=== PATIENT | female | born 1950 | race Caucasian/White ===

== ENCOUNTER → 2018-04-28 | Outpatient (CLI) | payer OTHER ==
[~2018-04-28] MED LIST: ASPIRIN81 M2 PO; BIOTIN5 M1 PO; CALCIUM + D3 E1 EACH PO; CYANOCOBAL1000 MCG/2 IM; HYDROCHLOROTHIA25 MG PO; PRAVACHOL20 MG PO; PRINIVIL5 MG PO; VITAMIN D-32000 UNI2 PO
[2018-04-28 08:55] LABS: BASOPHIL (%) 0.3 % (0-1); EOSINOPHIL (%) 0.5 % (0-5); HEMOGLOBIN 9.4 G/DL (11.9-15.5); IMMATURE GRANULOCYTE (%) 0.5 % (0.0-0.7); LYMPHOCYTE (%) 34.3 % (15-42); LYMPHOCYTE COUNT 1.3 K/uL (1.0-2.8); MCH 30.2 PG (29.0-34.0); MCHC 32.4 G/DL (30.0-36.0); MCV 93.2 FL (83-99); MONOCYTE (%) 18.1 % (3-12); MONOCYTE COUNT 0.7 K/uL (0-0.8); NEUTROPHIL (%) 46.3 % (45-76); NEUTROPHIL COUNT 1.8 K/uL (1.8-6.4); PLATELET COUNT 236 K/uL (156-360); RBC DIS.WIDTH-CV 16.6 % (11.8-14.6); RBC DIS.WIDTH-SD 55.8 % (39-53); RED BLOOD COUNT 3.11 M/uL (3.80-5.20); WHITE BLOOD COUNT 3.8 K/uL (4.1-10.2)
[2018-04-28 10:27] LABS: INTER. NORMALIZED RATIO 1.2
[2018-04-28 10:30] LABS: PTT 30.3 SEC (25-37)
[2018-04-28 11:36] LABS: ABS NEUTROPHIL COUNT 2.2; ANISOCYTOSIS 1+; EOSINOPHIL ABS CT 0; LYMPHOCYTES 29.6 % (15.0-45.0); MACROCYTES 1+; SEG.NEUTROPHILS 57.4 % (46.0-76.0)
[2018-05-01 11:50] LABS: NUMBER OF MARKERS 22; SPECIMEN TYPE BONE MARROW; SPECIMEN VIABILITY 92
== END | disposition home or self-care (01) ==
LOC: OPR 08:29 → EDSTATUS 09:00 → OPR 09:00
PROVIDERS: Anesthesiology
DX: D64.9 Anemia, unspecified (principal); M85.80 Other specified disorders of bone density and structure, unspecified site; I10 Essential (primary) hypertension; E78.5 Hyperlipidemia, unspecified; E53.8 Deficiency of other specified B group vitamins; Z86.010 Personal history of colon polyps
CPT/HCPCS: 77012; 85007; 85025; 85610; 85730; J3010